=== PATIENT | female | born 1985 | race Caucasian/White ===

== ENCOUNTER 2021-02-10 06:23 | Day surgery (SDC) | payer MEDICAID, SELFPAY ==
[~2021-02-10] VITALS: Ht 172.7 cm; Wt 131.5 kg
[2021-02-10 07:31] LABS: HCG,QUAL RESULT NEGATIVE (NEGATIVE)
[2021-02-10] MEDS ORDERED: fentaNYL CITRATE/PF 100 MCG/2 ML AMP IVP ONE (08:02)
[2021-02-10] MEDS ORDERED: NS IRRIG SOLN 1000 ML IR ONE (08:02)
[2021-02-10] MEDS ORDERED: METOCLOPRAMIDE HCL 10 MG/2 ML VIAL IVP ONE (08:02)
[2021-02-10] MEDS ORDERED: KETOROLAC TROMETHAMINE 30 MG VIAL IVP ONE (08:02)
[2021-02-10] MEDS ORDERED: ONDANSETRON HCL 4 MG/2 ML VIAL IVP ONE (08:02)
[2021-02-10] MEDS ORDERED: GLYCOPYRROLATE 0.2 MG/ML VIAL IJ ONE (08:02)
[2021-02-10] MEDS ORDERED: MIDAZOLAM HCL 5 MG/5 ML VIAL IVP ONE (08:02)
[2021-02-10] MEDS ORDERED: LIDOCAINE 2%, 20 ML MDV IM ONE (08:02)
[2021-02-10] MEDS ORDERED: PROPOFOL 200MG/ 20ML VIAL (DIPRIVAN) IV ONE (08:02)
[2021-02-10] MEDS ORDERED: LR 500 ML IV.SOLN IV ONE (08:02)
[2021-02-10] MEDS ORDERED: SEVOFLURANE 15 MIN GAS INH ONE (08:02)
[2021-02-10] MEDS ORDERED: NS 1000 ML IV.SOLN IV ONE (08:02)
[2021-02-10] MEDS ORDERED: KETOROLAC TROMETHAMINE 30 MG VIAL IVP PRN ×3 (09:00)
[2021-02-10] MEDS ORDERED: NALOXONE HCL 0.4 MG/ML AMP (NARCAN) IVP PRN (09:00)
[2021-02-10] MEDS ORDERED: ONDANSETRON HCL 4 MG/2 ML VIAL IVP PRN (09:00)
[2021-02-10] MEDS ORDERED: HYDROmorphone 1 INJ. 1 MG/ML CARTRIDGE IVP PRN ×2 (09:00)
[2021-02-10] MEDS ORDERED: LR 1,000 ML IV SCH (09:00)
[2021-02-10 13:24] VITALS: BP_SYST 117
== END 2021-02-10 11:25 | disposition home or self-care (01) ==
LOC: SDS 06:23 → SMU 06:25 → SDS 11:25
PROVIDERS: ATTEND Obstetrics & Gynecology
DX: N92.0 Excessive and frequent menstruation with regular cycle (principal); N84.0 Polyp of corpus uteri; D25.9 Leiomyoma of uterus, unspecified; J45.909 Unspecified asthma, uncomplicated; E66.01 Morbid (severe) obesity due to excess calories; Z20.828 Contact with and (suspected) exposure to other viral communicable diseases; Z79.899 Other long term (current) drug therapy
CPT/HCPCS: 36415; 58558; 84703; 86886; 86900; 86901; 88305; C1819; J1885; J2001; J2250; J2405; J2704; J2765; J3010; J3490; J7030; J7120; U0003

== ENCOUNTER 2024-04-24 10:10 | Day surgery (SDC) | payer MEDICAID, OTHER ==
[~2024-04-24] VITALS: Ht 172.7 cm; Wt 102.5 kg
[2024-04-24 11:07] LABS: HCG,QUAL RESULT NEGATIVE (NEGATIVE)
[2024-04-24] MEDS ORDERED: DEXAMETHASONE SOD PHOSPHATE 4 MG/ML VIAL ONE (11:43)
[2024-04-24] MEDS ORDERED: NALOXONE HCL 0.4 MG/ML AMP (NARCAN) IVP PRN (12:15)
[2024-04-24] MEDS ORDERED: ONDANSETRON HCL 4 MG/2 ML VIAL IVP PRN (12:15)
[2024-04-24] MEDS ORDERED: KETOROLAC TROMETHAMINE 30 MG VIAL IM PRN (12:15)
[2024-04-24] MEDS ORDERED: hydrALAZINE HCL 20 MG/ML VIAL IV PRN (12:15)
[2024-04-24] MEDS ORDERED: HYDROmorphone 1 MG/ML INJ. CARTRIDGE ONE (13:01)
[2024-04-24] MEDS: HYDROmorphone 1 MG/ML INJ. CARTRIDGE IVP PRN ×2 (13:02→13:12)
[2024-04-24 13:20] VITALS: O2SAT 98
[2024-04-24] MEDS: HYDROmorphone 1 MG/ML INJ. CARTRIDGE ONE (14:30)
[2024-04-24 14:31] VITALS: BP_SYST 124; PULSE 71; RESP 16; TEMP 97.2
== END 2024-04-24 15:20 | disposition home or self-care (01) ==
LOC: SDS 10:10 → SMU 10:12 → SDS 15:20 → SMU 16:33 → SDS 17:00
PROVIDERS: ATTEND Obstetrics & Gynecology
DX: N92.0 Excessive and frequent menstruation with regular cycle (principal); N85.8 Other specified noninflammatory disorders of uterus; N84.0 Polyp of corpus uteri; K21.9 Gastro-esophageal reflux disease without esophagitis; G43.909 Migraine, unspecified, not intractable, without status migrainosus; G47.30 Sleep apnea, unspecified; E66.9 Obesity, unspecified; Z98.84 Bariatric surgery status; Z90.79 Acquired absence of other genital organ(s); Z83.3 Family history of diabetes mellitus; Z83.49 Family history of other endocrine, nutritional and metabolic diseases; Z68.34 Body mass index [BMI] 34.0-34.9, adult; Z82.5 Family history of asthma and other chronic lower respiratory diseases
CPT/HCPCS: 87081; 58558; 84703; 88305; J1100; J2704; J1170; J7120; C1819